=== PATIENT | female | born 1935 | race Caucasian/White ===

== ENCOUNTER 2019-02-28 07:43 | Outpatient (CLI) | payer OTHER | END 2019-02-28 07:53 | disposition home or self-care (01) | LOC: TOM 07:43 | DX: R63.4 Abnormal weight loss (principal); R19.5 Other fecal abnormalities; K56.50 Intestinal adhesions [bands], unspecified as to partial versus complete obstruction ==

== ENCOUNTER 2019-03-08 08:55 | Outpatient (CLI) | payer OTHER | END 2019-03-08 11:43 | disposition home or self-care (01) | LOC: SONOGRAMA 08:55 | DX: E04.2 Nontoxic multinodular goiter (principal) ==

== ENCOUNTER 2021-03-08 08:00 | Outpatient (CLI) | payer OTHER | END 2021-03-08 08:30 | disposition home or self-care (01) | LOC: PPH VACUNA 08:00 | DX: Z23 Encounter for immunization (principal) ==